=== PATIENT | male | born 1980 | race African-American/Black ===

== ENCOUNTER 2016-12-19 18:55 | Emergency (ER) | payer OTHER ==
[2016-12-19] MEDS ORDERED: TYLENOL325 M1 PO (19:15)
[2016-12-19] MEDS ORDERED: GABAPENTIN400 MG PO (19:15)
[2016-12-19] MEDS ORDERED: MELOXICAM7.5 MG (19:16)
[2016-12-19] MEDS ORDERED: HYDROCODON-ACE1 EAC9 PO (19:17)
== END 2016-12-19 19:53 | disposition home or self-care (01) ==
LOC: SED 18:55
DX: Z76.0 Encounter for issue of repeat prescription (principal); Z79.899 Other long term (current) drug therapy
CPT/HCPCS: 99282